=== PATIENT | male | born 1990 | race Caucasian/White ===

== ENCOUNTER 2018-12-02 13:28 | Emergency (ER) | payer BC, MEDICAID ==
[~2018-12-02] VITALS: Ht 182.9 cm; Wt 85.7 kg
--- NOTE | 2018-12-02 13:30 | NUR ---
PT BBRA FROM THE STREET FOR AMS D/T OD; GIVEN NARCAN INTRA NASAL WITH EFFECT; PT AWAKE, ALERT, NAD NOTED, VSS, NAD NOTED, MD AT BEDSIDE FOR EVAL
[2018-12-02 13:48] LABS: BASOPHILS # (AUTO) 0.1 /CMM (0.0-0.2); BASOPHILS % (AUTO) 0.8 % (0.0-2.0); EOSINOPHILS % (AUTO) 5.4 % (0.0-6.0); HEMATOCRIT 32 % (39-51); HEMOGLOBIN 10.4 g/dL (13.5-17.5); LYMPHOCYTES # (AUTO) 1.9 /CMM (0.8-4.8); LYMPHOCYTES % (AUTO) 19.8 % (20.0-44.0); MEAN CORPUSCULAR HGB CONC 33 g/dl (31.0-36.0); MEAN CORPUSCULAR VOLUME 77 fL (80-96); MONOCYTES # (AUTO) 0.5 /CMM (0.1-1.30); NEUTROPHILS # (AUTO) 6.7 /CMM (1.8-8.9); PLATELET COUNT (AUTO) 609 /CMM (150-450); RED BLOOD CELL COUNT(AUTO) 4.12 MIL/uL (4.5-6.0); WHITE BLOOD COUNT (AUTO) 9.7 K/uL (4.3-11.0)
[2018-12-02 14:04] LABS: CALCIUM, SERUM 9.1 mg/dL (8.5-10.1); CARBON DIOXIDE 27 mmol/L (21-32); CHLORIDE 103 mmol/L (98-107); CREATININE 0.7 mg/dL (0.6-1.3); GLUCOSE 107 mg/dL (74-106); POTASSIUM 4.3 mmol/L (3.5-5.1); SODIUM SERUM 139 mmol/L (136-145); UREA NITROGEN, BLOOD 12 mg/dL (7-18)
[2018-12-02 14:09] LABS: APPEARANCE,URINE Cloudy (CLEAR); BILIRUBIN,URINE Negative (NEGATIVE); BLOOD, URINE Negative Ery/uL (NEGATIVE); COLOR,URINE Yellow (YELLOW); KETONES,URINE Negative (NEGATIVE); LEUKOCYTE ESTERASE ,URINE Negative (NEGATIVE); NITRITE, URINE Negative (NEGATIVE); PH,URINE 8.5 (5.0-8.0); PROTEIN,URINE Negative (NEGATIVE); UGLUCOSE Negative (NEGATIVE); UROBILINOGEN,URINE 0.2 EU/dL (0.2)
[2018-12-02 14:10] LABS: ALANINE AMINOTRANSFERASE 17 U/L (12-78); ALBUMIN 2.9 g/dL (3.4-5.0); ALCOHOL, BLOOD < 3 mg/dL (0-0); ALKALINE PHOSPHATASE 69 U/L (46-116); ASPARTATE AMINOTRANSFERASE 19 U/L (15-37); BILIRUBIN,DIRECT 0.1 mg/dL (0.0-0.2); BILIRUBIN,TOTAL 0.2 mg/dL (0.2-1.0); TOTAL PROTEIN, SERUM 8.8 g/dL (6.4-8.2)
[2018-12-02 14:11] LABS: ACETAMINOPHEN 0 ug/ml (10-30); SALICYLATE 0.9 mg/dL (2.8-20.0)
--- NOTE | 2018-12-02 16:34 | NUR ---
Patient discharged to home in stable condition. Written and verbal after care instructions given. Patient verbalizes understanding of instruction. IV removed. Catheter intact and site benign. Pressure and 4x4 applied to site. No bleeding noted.
--- NOTE | 2018-12-02 16:34 | NUR ---
PT PROVIDED WITH HOMELESS D/C RESOURCES; REFUSED AT THIS TIME; WAIVER SIGNED, PROVIDED WITH TAP CARD.
[2018-12-02 16:35] VITALS: BP 133/60
== END 2018-12-02 16:36 | disposition home or self-care (01) ==
LOC: ER 13:35
DX: T40.1X1A Poisoning by heroin, accidental (unintentional), initial encounter (principal); F17.200 Nicotine dependence, unspecified, uncomplicated; Z60.2 Problems related to living alone; Y92.89 Other specified places as the place of occurrence of the external cause
CPT/HCPCS: 36415; 80048-TC; 80076-TC; 80305; 81000-TC; 85025-TC; G0480

== ENCOUNTER 2022-01-08 17:17 | Emergency (ER) | payer MEDICAID ==
[~2022-01-08] VITALS: Ht 180.3 cm; Wt 70.3 kg
--- NOTE | 2022-01-08 17:36 | NUR ---
CALLED TO TRIAGE,NO ANSWER
[2022-01-08 17:48] VITALS: BP 132/68
--- NOTE | 2022-01-08 18:17 | NUR ---
MAYNOR AGUILAR AT BEDSIDE FOR EVAL.
[2022-01-08] MEDS ORDERED: CIPR5DRO EACHEYE (18:48)
[2022-01-08] MEDS ORDERED: NALO4SPR BNOSTRILS (18:49)
--- NOTE | 2022-01-08 18:58 | NUR ---
DINNER GIVEN,ACI AND RX
== END 2022-01-08 19:00 | disposition home or self-care (01) ==
LOC: ER 17:20
DX: H10.33 Unspecified acute conjunctivitis, bilateral (principal); B85.0 Pediculosis due to Pediculus humanus capitis; F11.10 Opioid abuse, uncomplicated; F17.200 Nicotine dependence, unspecified, uncomplicated; Z79.899 Other long term (current) drug therapy

== ENCOUNTER 2022-02-15 00:40 | Emergency (ER) | payer MEDICAID ==
[~2022-02-15] VITALS: Ht 177.8 cm; Wt 81.6 kg
[~2022-02-15 00:40] MED LIST: CIPR5DRO EACHEYE; NALO4SPR BNOSTRILS
--- NOTE | 2022-02-15 01:05 | NUR ---
TO ER BED 13. [id number] SMOKED FENTANYL GIVEN 2MG IM NARCAN CASE LINER. NO MEDICAL COMPLAINT. DENIES CHEST PAIN OR SOB. CONNECTED TO MONITOR. AWAITING MD HI
--- NOTE | 2022-02-15 01:24 | NUR ---
Theresa caal in [facility] - 02/15/22 at 0124 by MICA LEFT WITHOUT BEING SEEN
[2022-02-15 01:47] LABS: BASOPHILS % (AUTO) 0.5 % (0.0-2.0); EOSINOPHILS % (AUTO) 3.2 % (0.0-6.0); HEMATOCRIT 36 % (39-51); HEMOGLOBIN 11.7 g/dL (13.5-17.5); LYMPHOCYTES # (AUTO) 2.8 K/uL (0.8-4.8); LYMPHOCYTES % (AUTO) 36.1 % (20.0-44.0); MEAN CORPUSCULAR HGB CONC 33 g/dl (31.0-36.0); MEAN CORPUSCULAR VOLUME 85 fL (80-96); MONOCYTES # (AUTO) 0.8 K/uL (0.1-1.30); MONOCYTES % (AUTO) 10.2 % (2.0-12.0); NEUTROPHILS # (AUTO) 3.8 K/uL (1.8-8.9); PLATELET COUNT (AUTO) 318 K/uL (150-450); RED BLOOD CELL COUNT(AUTO) 4.19 MIL/uL (4.5-6.0); WHITE BLOOD COUNT (AUTO) 7.7 K/uL (4.3-11.0)
[2022-02-15 02:01] LABS: CALCIUM, SERUM 8.7 mg/dL (8.5-10.1); CARBON DIOXIDE 30 mmol/L (21-32); CHLORIDE 107 mmol/L (98-107); CREATININE 0.7 mg/dL (0.6-1.3); GLUCOSE 92 mg/dL (74-106); POTASSIUM 3.7 mmol/L (3.5-5.1); SODIUM SERUM 142 mmol/L (136-145); UREA NITROGEN, BLOOD 19 mg/dL (7-18)
[2022-02-15 02:08] LABS: ALANINE AMINOTRANSFERASE 20 U/L (12-78); ALBUMIN 3.5 g/dL (3.4-5.0); ALKALINE PHOSPHATASE 64 U/L (46-116); ASPARTATE AMINOTRANSFERASE 16 U/L (15-37); BILIRUBIN,DIRECT 0.1 mg/dL (0.0-0.2); BILIRUBIN,TOTAL 0.2 mg/dL (0.2-1.0)
[2022-02-15 02:09] LABS: ACETAMINOPHEN 0 ug/ml (10-30); ALCOHOL, BLOOD < 3 mg/dL (0-0)
--- NOTE | 2022-02-15 04:02 | NUR ---
PT RESTING COMFORTABLY IN BED, WILL CONTINUE TO MONITOR.
[2022-02-15 04:30] VITALS: BP 126/70
--- NOTE | 2022-02-15 04:30 | NUR ---
Patient discharged to home in stable condition. Written and verbal after care instructions given. Patient verbalizes understanding of instruction.
== END 2022-02-15 04:30 | disposition home or self-care (01) ==
LOC: ER 00:48
DX: T40.411A Poisoning by fentanyl or fentanyl analogs, accidental (unintentional), initial encounter (principal); R40.0 Somnolence; F17.200 Nicotine dependence, unspecified, uncomplicated; Y92.89 Other specified places as the place of occurrence of the external cause
CPT/HCPCS: 36415; 80048-TC; 80076-TC; 85025-TC; G0480

== ENCOUNTER 2022-04-04 04:15 | Emergency (ER) | payer MEDICAID | END 2022-04-04 04:31 | disposition left against medical advice (07) | LOC: ER 04:17 | DX: Z53.21 Procedure and treatment not carried out due to patient leaving prior to being seen by health care provider (principal) ==

== ENCOUNTER 2023-05-26 14:59 | Emergency (ER) | payer MEDICAID ==
[~2023-05-26] VITALS: Ht 182.9 cm; Wt 72.6 kg
[2023-05-26 19:22] VITALS: BP 115/79; TEMP 98.2; O2SAT 98
== END 2023-05-26 19:23 | disposition left against medical advice (07) ==
LOC: ER 15:03
DX: S22.31XA Fracture of one rib, right side, initial encounter for closed fracture (principal); F17.200 Nicotine dependence, unspecified, uncomplicated; Z79.899 Other long term (current) drug therapy; Y08.89XA Assault by other specified means, initial encounter; Y93.89 Activity, other specified; Y92.89 Other specified places as the place of occurrence of the external cause; Y99.8 Other external cause status
CPT/HCPCS: 71100-TC